=== PATIENT | female | born 1990 | race Caucasian/White ===

== ENCOUNTER 2017-10-12 14:55 | Emergency (ER) | payer BC ==
--- NOTE | 2017-10-12 15:10 | Emergency Department Record ---
History of Present Illness - General Chief complaint: Flank Pain Stated complaint: FLANK PAIN Time Seen by Provider: 10/12/17 15:09 Source: Patient Mode of Arrival: Ambulatory Limitations: No limitations - History of Present Illness Initial comments: 27 yo female presents with pelvic pain and flank pain. The symptoms have been ongoing for several weeks but seem to be increasing. She is 7 weeks . No vaginal bleeding. She has had a pain across the low back throughout as well. No fevers. No vomiting. No diarrhea. She has an OB appointment in 2 weeks. She has had 3 miscarriages and one live . She has had kidney stones in the past. MD Complaint: Pelvic pain -: Week(s) Radiation: L flank, R flank Severity: Mild Quality: Aching, Cramping Consistency: Intermittent Improves with: None Worsens with: None Associated Symptoms: Denies other symptoms - Related Data Previous Rx's Medication Instructions Recorded Clindamycin HCl 300 mg PO BID #14 capsule 10/12/17 Allergies Allergy/AdvReac Type Severity Reaction Status Date / Time No Known Drug Allergies Allergy Verified 10/12/17 15:18 Review of Systems Constitutional: Denies: Chills, Fever, Malaise, Weakness Eyes: Denies: Eye discharge, Eye pain, Photophobia, Vision change ENT: Denies: Congestion, Throat pain Respiratory: Denies: Cough, Dyspnea, Hemoptysis, Stridor, Wheezes Cardiovascular: Denies: Chest pain, Syncope Endocrine: Denies: Fatigue, Polydipsia, Polyuria Gastrointestinal: Reports: As per HPI, Abdominal pain, Nausea. Denies: Diarrhea , Vomiting Genitourinary: Denies: Dysuria, Urgency Musculoskeletal: Reports: Back pain. Denies: Arthralgia, Joint swelling, Myalgia Skin: Denies: Bruising, Change in color, Rash Neurological: Denies: Headache, Numbness, Vertigo, Weakness Psychiatric: Denies: Anxiety Hematological/Lymphatic: Denies: Easy bleeding, Easy bruising, Swollen glands Past Medical History - SOCIAL HISTORY Smoking Status: Light tobacco smoker (<10/day) - RESPIRATORY Hx Respiratory Disorders: No - CARDIOVASCULAR Hx Cardio Disorders: No - NEURO Hx Neuro Disorders: No - GI Hx GI Disorders: No - Hx Genitourinary Disorders: Yes Hx Kidney Stones: Yes - ENDOCRINE Hx Endocrine Disorders: No - MUSCULOSKELETAL Hx Musculoskeletal Disorders: No - PSYCH Hx Psych Problems: No - HEMATOLOGY/ONCOLOGY Hx Hematology/Oncology Disorders: No Family Medical History Family Hx Comment (NOT TO BE USED IN PLACE OF ITEMS BELOW): denies Physical Exam - General General Appearance: Alert, Oriented x3, Cooperative, No acute distress Limitations: No limitations - Head Head exam: Normal inspection - Eye Eye exam: Normal appearance - ENT ENT exam: Normal exam Ear exam: Normal external inspection Nasal Exam: Normal inspection Mouth exam: Normal external inspection - Neck Neck exam: Normal inspection - Respiratory Respiratory exam: Normal lung sounds bilaterally. negative: Respiratory distress - Cardiovascular Cardiovascular Exam: Regular rate, Normal rhythm, Normal heart sounds - GI/Abdominal GI/Abdominal exam: Soft, Tenderness (mild suprapubic, soft, no rebound or guarding) - Rectal Rectal exam: Deferred - Extremities Extremities exam: Normal inspection, Full ROM, Normal capillary refill. negative: Tenderness - Back Back exam: Reports: Normal inspection, CVA tenderness (R) (mild), CVA tenderness (L) (mild) - Neurological Neurological exam: Alert, Oriented X3 - Psychiatric Psychiatric exam: Normal affect, Normal mood. negative: Agitated, Anxious - Skin Skin exam: Dry, Intact, Normal color, Warm Course - Reevaluation(s) Reevaluation #1: 10/12/17 16:51 The CBC was reviewed No acute changes The CMP was negative for acute changes The UA was negative for infection or bacteria. Few RBC's. Epithelial cells noted as well. Likely some contamination. The Wet prep was positive for Clue Cells. She is symptomatic with pelvic pain and discharge. She will be treated. 10/12/17 16:53 10/12/17 18:04 The Renal US was normal The OB US was positive for SVIUP with normal HR. 3cm Corpus Luteal cyst noted. No acute abnormality. 10/12/17 18:05 Rh+ Medical Decision Making - Lab Data Result diagrams: 10/12/17 15:45 10/12/17 15:45 Disposition Disposition: Discharge Clinical Impression: , Bacterial vaginosis, Pelvic pain Disposition: Home, Self-Care Condition: (1) Good Instructions: (ED), Bacterial Vaginosis (ED) Additional Instructions: Call your OB tomorrow be seen this week for close follow up Be seen immediately if worse, bleeding, fever or any new concerns Take the Clindamycin as directed for one week Prescriptions: Clindamycin HCl 300 mg PO BID #14 capsule Forms: Patient Portal Access Time of Disposition: 18:08 Quality - Quality Measures Quality Measures: N/A - Blood Pressure Screening Does Patient Have Any of the Following: No Blood Pressure Classification: Normal BP Reading Systolic Measurement: 118 Diastolic Measurement: 66 Screening for High Blood Pressure: < Normal BP, F/U Not Required > [G8710]
[2017-10-12 15:35] LABS: URINE APPEARANCE CLEAR; URINE BILIRUBIN NEGATIVE (NEGATIVE); URINE BLOOD NEGATIVE (NEGATIVE); URINE COLOR YELLOW; URINE GLUCOSE (UA) NEGATIVE (NEGATIVE); URINE KETONE NEGATIVE (NEGATIVE); URINE LEUKOCYTE ESTERASE TRACE (NEGATIVE); URINE NITRITE NEGATIVE (NEGATIVE); URINE PROTEIN NEGATIVE (NEGATIVE); URINE UROBILINOGEN 0.2 E.U./dL (0.20 - 1.00)
[2017-10-12] MEDS ORDERED: 0.9 % SODIUM CHLORIDE 1,000 ML BAG IV ONE (15:35)
[2017-10-12 15:41] LABS: HCG,QUALITATIVE URINE POSITIVE (NEGATIVE)
[2017-10-12 15:56] LABS: URINE AMORPHOUS SEDIMENT 2+; URINE BACTERIA NONE SEEN; URINE EPITHELIAL CELLS 16 - 20 (FEW); URINE MUCUS MODERATE; URINE RBC 16 - 25 (NONE SEEN)
[2017-10-12 15:56] LABS: BASO % 0.7 % (0-6); EOS % 0.7 % (0-6); GRAN % 66.1 % (47-80); HEMATOCRIT 38.5 % (35.0-47.0); HEMOGLOBIN 12.8 gm/dl (11.6-16.0); LYMPH % 23.2 % (16-45); MEAN CORPUSCULAR HEMOGLOBIN 31.9 pg (27-33); MEAN CORPUSCULAR HGB CONC 33.2 g/dl (32-36); MEAN PLATELET VOLUME 11.9 fl (7.4-10.4); MONO % 9.3 % (0-9); PLATELET COUNT 163 K/uL (130-400); RED BLOOD COUNT 4.01 M/uL (3.80-5.40); RED CELL DISTRIBUTION WIDTH 12.1 % (11.5-14.5); WHITE BLOOD COUNT W/O DIFF 7.5 K/uL (4.2-12.2)
[2017-10-12 16:10] LABS: BLOOD UREA NITROGEN 6 mg/dL (6-20); CREATININE 0.6 mg/dL (0.5-0.9); EST GLOMERULAR FILTRATION RATE > 60 mL/min
[2017-10-12 16:13] LABS: GLUCOSE,RANDOM 85 mg/dL (74-109)
[2017-10-12] MEDS ORDERED: CLINDAMYCIN 150 MG CAP PO ONE (16:52)
--- NOTE | 2017-10-13 13:11 | ULTRASOUND REPORT ---
EXAM: EMERGENCY RENAL/RETROPERITONEAL ULTRASOUND HISTORY: , FLANK PAIN FOR A DAY. TECHNIQUE: Real-time ultrasound examination of the kidneys and urinary bladder was obtained. Comparison: No prior renal/retroperitoneal ultrasound. FINDINGS: The right kidney measures about 11.2 cm in length with no definite hydronephrosis seen. The left kidney measures about 12.7 cm in length with no hydronephrosis seen on the left as well. There is abnormal renal parenchymal echogenicity compared to the adjacent hepatic parenchymal echogenicity. The urinary bladder is identified with a prevoid bladder volume of 351 ml. No focal bladder abnormality identified. There is a small post void residual of only about 9 ml. Small intrauterine fluid collection evident. Please see the first trimester OB ultrasound from today as well. IMPRESSION: 1. THE KIDNEYS APPEAR NEGATIVE WITH NO HYDRONEPHROSIS EVIDENT. 2. THE BLADDER ALSO APPEARS ESSENTIALLY NEGATIVE WITH A RELATIVELY SMALL POST VOID RESIDUAL. JOB NUMBER: [id number] MTDD
--- NOTE | 2017-10-13 13:28 | ULTRASOUND REPORT ---
EXAM: EMERGENCY FIRST TRIMESTER OB ULTRASOUND WITH TRANSVAGINAL AND DOPPLER HISTORY: FIRST TRIMESTER , LEFT LOWER QUADRANT PAIN FOR A DAY NOW EXTENDING TO THE RIGHT LOWER QUADRANT AND BILATERAL FLANK AREA PAIN, NAUSEA AND VOMITING. TECHNIQUE: Real-time ultrasound examination of the pelvis was performed utilizing transabdominal and transvaginal technique. Comparison: No prior pelvic ultrasound with which to compare. FINDINGS: TRANSABDOMINAL OB ULTRASOUND: The uterus is identified measuring about 5.8 cm in AP x 7 cm in transverse diameters x 11.8 cm in length. Within the uterine fundus is seen an intrauterine gestational sac containing a tiny yolk sac and tiny pole. The gestational sac has a mean sac diameter of 2.28 cm corresponding to an estimated gestational age of 6 weeks 6 days. The tiny pole has a CRL measurement averaging about 0.94 corresponding to an estimated gestational age of 7 weeks 0 days. The heartbeat was detected and measured at 141 b.p.m. consistent with a viable intrauterine . The maternal right ovary was seen measuring 5.7 cm in size and containing a sonolucent mass about 3.6 cm in size, nonspecific although presumably a corpus luteum cyst. The left maternal ovary is not clearly seen, but no maternal left adnexal mass evident and no free fluid seen. The amniotic fluid and placenta cannot be adequately evaluated at this early gestational age, nor can the anatomy. TRANSVAGINAL OB ULTRASOUND: In an effort to better visualize the early intrauterine , transvaginal study was also performed. A very small amount of free fluid in the cul-de-sac may simply be physiologic. A single intrauterine gestational sac containing a pole and yolk sac again evident. The maternal right ovary is again seen measuring up to 7 cm in size and dominated by the approximately 3.4 cm cyst, again nonspecific although presumably a corpus luteum cyst. Arterial and venous flow evident in the right ovary with color flow and spectral analysis Doppler. The left ovary is identified transvaginally measuring about 2.8 cm in length and also demonstrating arterial and venous flow with color flow and spectral analysis Doppler. No left adnexal mass evident. Mean sac diameter measured at 2.33 cm corresponding to an estimated gestational age of 7 weeks 0 days. CRL measurement of about 1.01 cm identified corresponding an estimated gestational age of 7 weeks 1 day. heartbeat detected at 149 b.p.m. IMPRESSION: 1. SINGLE VIABLE INTRAUTERINE WITH AN ESTIMATED GESTATIONAL AGE OF ABOUT 7 WEEKS. THIS GIVES AN ESTIMATED DATE OF DELIVERY OF 05/31/18. THIS CORRESPONDS WELL WITH THE ANTICIPATED GESTATIONAL AGE OF 7 WEEKS 1 DAY BASED ON MENSTRUAL DATES. 2. HEARTBEAT DETECTED AT 149 B.P.M. CONSISTENT WITH A VIABLE INTRAUTERINE . 3. APPROXIMATELY 3.4 CM CYST RIGHT OVARY PRESUMABLY A CORPUS LUTEUM CYST. 4. TINY CERVICAL NABOTHIAN CYST. 5. TINY AMOUNT OF FREE FLUID MAY SIMPLY BE PHYSIOLOGIC. JOB NUMBER: [id number] [facility]
[2017-10-13 15:26] LABS: GC SPECIMEN TYPE Vaginal
== END 2017-10-12 18:21 | disposition home or self-care (01) ==
LOC: ER 14:55
DX: O23.91 Unspecified genitourinary tract infection in pregnancy, first trimester (principal); N76.0 Acute vaginitis; R10.31 Right lower quadrant pain; R11.2 Nausea with vomiting, unspecified; O99.331 Smoking (tobacco) complicating pregnancy, first trimester; F17.210 Nicotine dependence, cigarettes, uncomplicated; Z3A.01 Less than 8 weeks gestation of pregnancy
CPT/HCPCS: 99284 ×2; 85025; 80048; 81001; 81025; 86901; 76775; 76817; 76801; Q0111; 87210; J7030

== ENCOUNTER 2017-10-23 16:05 | Emergency (ER) | payer BC ==
[2017-10-23 16:50] LABS: URINE APPEARANCE SL CLOUDY; URINE BILIRUBIN NEGATIVE (NEGATIVE); URINE BLOOD TRACE-I (NEGATIVE); URINE COLOR YELLOW; URINE GLUCOSE (UA) NEGATIVE (NEGATIVE); URINE KETONE NEGATIVE (NEGATIVE); URINE LEUKOCYTE ESTERASE NEGATIVE (NEGATIVE); URINE NITRITE NEGATIVE (NEGATIVE); URINE PROTEIN NEGATIVE (NEGATIVE); URINE UROBILINOGEN 0.2 E.U./dL (0.20 - 1.00)
[2017-10-23 17:04] LABS: URINE BACTERIA NONE SEEN; URINE EPITHELIAL CELLS 0 - 2 (FEW); URINE RBC 0 - 2 (NONE SEEN); URINE WBC NONE SEEN (0-2/hpf)
[2017-10-23 18:09] LABS: BASO % 0.5 % (0-6); EOS % 0.7 % (0-6); GRAN % 68.3 % (47-80); HEMATOCRIT 36.6 % (35.0-47.0); HEMOGLOBIN 12.4 gm/dl (11.6-16.0); LYMPH % 22.3 % (16-45); MEAN CELL VOLUME 95.8 fl (81-97); MEAN CORPUSCULAR HEMOGLOBIN 32.5 pg (27-33); MEAN CORPUSCULAR HGB CONC 33.9 g/dl (32-36); MEAN PLATELET VOLUME 12.3 fl (7.4-10.4); MONO % 8.2 % (0-9); PLATELET COUNT 163 K/uL (130-400); RED BLOOD COUNT 3.82 M/uL (3.80-5.40); RED CELL DISTRIBUTION WIDTH 12.1 % (11.5-14.5); WHITE BLOOD COUNT W/O DIFF 8.9 K/uL (4.2-12.2)
--- NOTE | 2017-10-23 18:55 | Emergency Department Record ---
History of Present Illness - General Chief complaint: complication Stated complaint: AND BLOOD IN URINE Time Seen by Provider: 10/23/17 17:04 Source: Patient Mode of Arrival: Ambulatory Limitations: No limitations - History of Present Illness Initial comments: ptis approx 8wks ant is having cramping. she had blood in the toilet today. no clots or tissue. she saw her ob earlier this week MD Complaint: Abdominal pain Onset/Timin -: Days(s) Location: Abdomen Radiation: Suprapubic Severity: Moderate Severity scale (1-10): 5 Quality: Aching, Cramping Consistency: Constant Improves with: None Associated symptoms: Denies other symptoms, Nausea/vomiting Vaginal bleeding: None Number of weeks : 8 08/22/17 Pre-naima care: Followed by OB - Related Data : 5 Para: 1 Ab: 3 Home Medications Medication Instructions Recorded Confirmed Last Taken No Home Med [NO HOME MEDS] 10/23/17 10/23/17 Unknown Allergies Allergy/AdvReac Type Severity Reaction Status Date / Time No Known Drug Allergies Allergy Verified 10/23/17 16:45 Review of Systems Reviewed: No additional complaints except as noted below Constitutional: Reports: As per HPI. Denies: Chills, Fever, Malaise, Night sweats, Weakness, Weight change Eyes: Reports: As per HPI. Denies: Eye discharge, Eye pain, Photophobia, Vision change ENT: Reports: As per HPI. Denies: Congestion, Dental pain, Ear pain, Epistaxis , Hearing loss, Throat pain Respiratory: Reports: As per HPI. Denies: Cough, Dyspnea, Hemoptysis, Stridor, Wheezes Cardiovascular: Reports: As per HPI. Denies: Arrhythmia, Chest pain, Dyspnea on exertion, Edema, Murmurs, Orthopnea, Palpitations, Paroxysmal nocturnal dyspnea, Rheumatic Fever, Syncope Endocrine: Reports: As per HPI. Denies: Fatigue, Heat or cold intolerance, Polydipsia, Polyuria Gastrointestinal: Reports: As per HPI, Nausea, Vomiting. Denies: Abdominal pain , Constipation, Diarrhea, Hematemesis, Hematochezia, Melena Genitourinary: Reports: As per HPI. Denies: Abnormal menses, Discharge, Dyspareunia, Dysuria, Frequency, Hematuria, Incontinence, Retention, Urgency Musculoskeletal: Reports: As per HPI. Denies: Arthralgia, Back pain, Gout, Joint swelling, Myalgia, Neck pain Skin: Reports: As per HPI. Denies: Bruising, Change in color, Change in hair/ nails, Lesions, Pruritus, Rash Neurological: Reports: As per HPI. Denies: Abnormal gait, Confusion, Headache, Numbness, Paresthesias, Seizure, Tingling, Tremors, Vertigo, Weakness Psychiatric: Reports: As per HPI. Denies: Anxiety, Auditory hallucinations, Depression, Homicidal thoughts, Suicidal thoughts, Visual hallucinations Hematological/Lymphatic: Reports: As per HPI. Denies: Anemia, Blood Clots, Easy bleeding, Easy bruising, Swollen glands Past Medical History - SOCIAL HISTORY Smoking Status: Light tobacco smoker (<10/day) Alcohol Use: None Drug Use: None - ADMISSION NURSE History : 5 Para: 1 A: 3 - RESPIRATORY Hx Respiratory Disorders: No - CARDIOVASCULAR Hx Cardio Disorders: No - NEURO Hx Neuro Disorders: No - GI Hx GI Disorders: No - Hx Genitourinary Disorders: Yes Hx Kidney Stones: Yes - ENDOCRINE Hx Endocrine Disorders: No - MUSCULOSKELETAL Hx Musculoskeletal Disorders: No - PSYCH Hx Psych Problems: No - HEMATOLOGY/ONCOLOGY Hx Hematology/Oncology Disorders: No Family Medical History Any Significant Family History?: Yes Family Hx Comment (NOT TO BE USED IN PLACE OF ITEMS BELOW): denies Physical Exam - General General Appearance: Alert, Oriented x3, Cooperative, Mild distress - Head Head exam: Normal inspection - Eye Eye exam: Normal appearance, PERRL, EOMI Pupils: Normal accommodation - ENT ENT exam: Normal exam, Mucous membranes moist, Normal external ear exam, Normal orophraynx Ear exam: Normal external inspection. negative: External canal tenderness Nasal Exam: Normal inspection. negative: Discharge, Sinus tenderness Mouth exam: Normal external inspection, Tongue normal Teeth exam: Normal inspection. negative: Dental caries Throat exam: Normal inspection. negative: Tonsillar erythema, Tonsillar exudate - Neck Neck exam: Normal inspection, Full ROM. negative: Tenderness - Respiratory Respiratory exam: Normal lung sounds bilaterally. negative: Respiratory distress - Cardiovascular Cardiovascular Exam: Regular rate, Normal rhythm, Normal heart sounds - GI/Abdominal GI/Abdominal exam: Soft, Normal bowel sounds. negative: Tenderness - Rectal Rectal exam: Deferred - exam: Enlarged uterus, Other (cervix is closed. no bleeding at this time though there is scant dark blood) - Extremities Extremities exam: Normal inspection, Full ROM, Normal capillary refill. negative: Tenderness - Back Back exam: Reports: Normal inspection, Full ROM. Denies: Muscle spasm, Rash noted, Tenderness - Neurological Neurological exam: Alert, Normal gait, Oriented X3, Reflexes normal - Psychiatric Psychiatric exam: Normal affect, Normal mood - Skin Skin exam: Dry, Intact, Normal color, Warm Course Vital Signs 10/23/17 10/23/17 16:38 18:37 Temperature 99.0 F Pulse Rate 75 Pulse Rate [ 65 Pulse Ox Probe] Respiratory 18 16 Rate Blood Pressure 101/77 Blood Pressure 97/56 [Left Arm] Pulse Ox 100 99 - Reevaluation(s) Reevaluation #1: 10/23/17 19:35 d/w dr bernabe. us shows iup hr 146 and implantation bleed Reevaluation #2: 10/23/17 19:42 pt is rh pos per lab Medical Decision Making - Lab Data Result diagrams: 10/23/17 18:00 Lab Results 10/23/17 10/23/17 10/23/17 Range/Units 16:49 16:49 18:00 WBC (4.2-12.2) K/uL RBC (3.80-5.40) M/uL Hgb (11.6-16.0) gm/dl Hct (35.0-47.0) % MCV (81-97) fl MCH (27-33) pg MCHC (32-36) g/dl RDW (11.5-14.5) % Plt Count (130-400) K/uL MPV (7.4-10.4) fl Gran % (47-80) % Lymphocytes % (16-45) % Monocytes % (0-9) % Eosinophils % (0-6) % Basophils % (0-6) % Total Beta HCG 29671 mIU/mL Urine Color Yellow Urine Appearance Sl cloudy Urine pH 6.5 (5.0-8.0) Ur Specific [place] 1.025 (1.002-1.030) Urine Protein Negative (NEGATIVE) Urine Glucose (UA) Negative (NEGATIVE) Urine Ketones Negative (NEGATIVE) Urine Blood Trace-i (NEGATIVE) Urine Nitrite Negative (NEGATIVE) Urine Bilirubin Negative (NEGATIVE) Urine Urobilinogen 0.2 (0.20 - 1.00) E.U./dL Ur Leukocyte Esterase Negative (NEGATIVE) Urine RBC 0 - 2 (NONE SEEN) Urine WBC None seen (0-2/hpf) Ur Epithelial Cells 0 - 2 (FEW) Urine Bacteria None seen Urine HCG, Qual Positive H (NEGATIVE) 10/23/17 Range/Units 18:00 WBC 8.9 (4.2-12.2) K/uL RBC 3.82 (3.80-5.40) M/uL Hgb 12.4 (11.6-16.0) gm/dl Hct 36.6 (35.0-47.0) % MCV 95.8 (81-97) fl MCH 32.5 (27-33) pg MCHC 33.9 (32-36) g/dl RDW 12.1 (11.5-14.5) % Plt Count 163 (130-400) K/uL MPV 12.3 H (7.4-10.4) fl Gran % 68.3 (47-80) % Lymphocytes % 22.3 (16-45) % Monocytes % 8.2 (0-9) % Eosinophils % 0.7 (0-6) % Basophils % 0.5 (0-6) % Total Beta HCG mIU/mL Urine Color Urine Appearance Urine pH (5.0-8.0) Ur Specific [place] (1.002-1.030) Urine Protein (NEGATIVE) Urine Glucose (UA) (NEGATIVE) Urine Ketones (NEGATIVE) Urine Blood (NEGATIVE) Urine Nitrite (NEGATIVE) Urine Bilirubin (NEGATIVE) Urine Urobilinogen (0.20 - 1.00) E.U./dL Ur Leukocyte Esterase (NEGATIVE) Urine RBC (NONE SEEN) Urine WBC (0-2/hpf) Ur Epithelial Cells (FEW) Urine Bacteria Urine HCG, Qual (NEGATIVE) Disposition Disposition: Discharge Clinical Impression: Threatened Disposition: Home, Self-Care Condition: (1) Good Instructions: Threatened Miscarriage (ED) Additional Instructions: follow up with ob. no sex for 2 wks or cleared by ob. push fluids Forms: Patient Portal Access Quality - Quality Measures Quality Measures: (14-50yr) - : US Determination Quality Measure: Measure #254: US Determination of Location US Determination of Location: < Trans-Abdominal or Trans-Vaginal US Performed > [G8806] - : Rhogam Quality Measure: Measure #255: Rhogam for Rh-Negative Women ICD10 Codes Entered: Yes Rhogam for Rh-Negative Women at Risk: Rh-immunoglobulin NOT Ordered w/ Reason [G6410] Reason for not prescribing Rhogam: Other - Blood Pressure Screening Does Patient Have Any of the Following: No Blood Pressure Classification: Normal BP Reading Systolic Measurement: 101 Diastolic Measurement: 77 Screening for High Blood Pressure: < Normal BP, F/U Not Required > [G8783]
--- NOTE | 2017-10-25 00:10 | ULTRASOUND REPORT ---
EXAM: ULTRASOUND OB PELV W TV - EARLY (4-13wks) HISTORY: PELVIC PAIN. TECHNIQUE: Transvaginal and transabdominal sonographic evaluation of the pelvis was performed using marroquin-scale imaging with the additional of color flow Doppler and spectral analysis. FINDINGS: The uterus is normal in position. The uterus measures 10.0 x 7.2 x 7.7 cm. There is a single live intrauterine with a sonographic age of 8 weeks, 4 days. heart sounds 165 beats per minute. The amniotic fluid volume appears subjectively normal. The placenta is still forming. There is an implantation bleed measuring 2.5 x 1.3 x 3.7 cm. The ovaries are normal in size. There is normal arterial and venous flow. IMPRESSION: 1. SINGLE LIVE INTRAUTERINE WITH A SONOGRAPHIC AGE OF 8 WEEKS, 4 DAYS. HEART SOUNDS 165 BEATS PER MINUTE. 2. SUBCHORIONIC HEMORRHAGE MEASURING 2.5 X 1.3 X 3.7 CM. JOB NUMBER: [id number] MTDD
== END 2017-10-23 19:50 | disposition home or self-care (01) ==
LOC: ER 16:05
DX: O20.0 Threatened abortion (principal); O99.331 Smoking (tobacco) complicating pregnancy, first trimester; Z3A.08 8 weeks gestation of pregnancy
CPT/HCPCS: 76801; 76817; 81001; 81025; 84702; 85025; 99283; 99284

== ENCOUNTER 2017-11-12 14:04 | Emergency (ER) | payer BC ==
[2017-11-12] MEDS ORDERED: ONDANSETRON HCL IV 4 MG/2 ML VIAL IV ONE (14:45)
[2017-11-12] MEDS ORDERED: 0.9 % SODIUM CHLORIDE 1,000 ML BAG IV ONE (14:45)
--- NOTE | 2017-11-12 14:48 | Emergency Department Record ---
History of Present Illness - General Chief complaint: complication Stated complaint: 11 WEEKS PREG AND VOMITING/CRAMPS Time Seen by Provider: 11/12/17 14:42 Source: Patient Mode of Arrival: Ambulatory Limitations: No limitations - History of Present Illness Initial comments: The patient is here due to a 2 day hx of frequent nausea, vomiting, and mild pelvic cramping. She denies any back pain, fever, chills, or any vaginal bleeding. The patient is 11 weeks by US 3 weeks ago and does have Zofran at home but it is not working. MD Complaint: Other Onset/Timin -: Days(s) Location: Pelvis - Related Data Home Medications Medication Instructions Recorded Confirmed Last Taken No122/Iron/Folic Acid 1 tab PO DAILY 11/12/17 11/12/17 11/12/17 [ Multi Tablet] Previous Rx's Medication Instructions Recorded Nitrofurantoin [place] [Macrobid] 100 mg PO BID #10 capsule 11/12/17 Allergies Allergy/AdvReac Type Severity Reaction Status Date / Time No Known Drug Allergies Allergy Verified 11/12/17 14:48 Review of Systems Constitutional: Denies: Chills, Fever Eyes: Denies: Eye discharge ENT: Denies: Congestion Respiratory: Denies: Cough, Dyspnea Past Medical History - SOCIAL HISTORY Smoking Status: Light tobacco smoker (<10/day) Drug Use: None - RESPIRATORY Hx Respiratory Disorders: No - CARDIOVASCULAR Hx Cardio Disorders: No - NEURO Hx Neuro Disorders: No - GI Hx GI Disorders: No - Hx Genitourinary Disorders: Yes Hx Kidney Stones: Yes - ENDOCRINE Hx Endocrine Disorders: No - MUSCULOSKELETAL Hx Musculoskeletal Disorders: No - PSYCH Hx Psych Problems: No - HEMATOLOGY/ONCOLOGY Hx Hematology/Oncology Disorders: No Family Medical History Family Hx Comment (NOT TO BE USED IN PLACE OF ITEMS BELOW): denies Physical Exam - General General Appearance: Alert, Oriented x3, Cooperative, No acute distress - Head Head exam: Atraumatic, Normocephalic, Normal inspection - Eye Eye exam: Normal appearance, PERRL, EOMI - ENT Throat exam: Normal inspection. negative: Tonsillar erythema, Tonsillar exudate - Neck Neck exam: Normal inspection, Full ROM. negative: Tenderness - Respiratory Respiratory exam: Normal lung sounds bilaterally. negative: Respiratory distress - Cardiovascular Cardiovascular Exam: Regular rate, Normal rhythm, Normal heart sounds - GI/Abdominal GI/Abdominal exam: Soft, Normal bowel sounds. negative: Rebound, Rigid, Tenderness - Extremities Extremities exam: Normal inspection, Full ROM, Normal capillary refill. negative: Tenderness Medical Decision Making - Lab Data Result diagrams: 11/12/17 14:45 11/12/17 14:55 Disposition Disposition: Discharge Clinical Impression: Hyperemesis gravidarum Disposition: Home, Self-Care Condition: (2) Stable Instructions: Hyperemesis Gravidarum (ED) Additional Instructions: Please take your home Zofran for nausea and drink plenty of fluids. Please take the Macrobid as directed and see your [facility] doctors if not better. Return to the ER for any worsening symptoms. Prescriptions: Nitrofurantoin [place] [Macrobid] 100 mg PO BID #10 capsule Forms: Patient Portal Access Time of Disposition: 16:20 Quality - Quality Measures Quality Measures: (14-50yr) - : US Determination Quality Measure: Measure #254: US Determination of Location View Details: Yes US Determination of Location: Trans-Abdominal or Trans-Vaginal US NOT Performed w/Reasons [G8807] Reason for No US: Documented Intrauterine - : Rhogam Quality Measure: Measure #255: Rhogam for Rh-Negative Women ICD10 Codes Entered: Yes View Details: Yes Rhogam for Rh-Negative Women at Risk: Rh-immunoglobulin NOT Ordered w/ Reason [G8810] Reason for not prescribing Rhogam: Other - Blood Pressure Screening View Details: Yes Does Patient Have Any of the Following: No Blood Pressure Classification: Normal BP Reading Systolic Measurement: 103 Diastolic Measurement: 65 Screening for High Blood Pressure: < Normal BP, F/U Not Required > [G8783]
[2017-11-12 15:03] LABS: BASO % 0.5 % (0-6); EOS % 0.6 % (0-6); GRAN % 72.3 % (47-80); HEMATOCRIT 38.1 % (35.0-47.0); HEMOGLOBIN 13.3 gm/dl (11.6-16.0); LYMPH % 20.1 % (16-45); MEAN CELL VOLUME 94.3 fl (81-97); MEAN CORPUSCULAR HEMOGLOBIN 32.9 pg (27-33); MEAN CORPUSCULAR HGB CONC 34.9 g/dl (32-36); MONO % 6.5 % (0-9); PLATELET COUNT 170 K/uL (130-400); RED BLOOD COUNT 4.04 M/uL (3.80-5.40); RED CELL DISTRIBUTION WIDTH 12.1 % (11.5-14.5)
[2017-11-12 15:18] LABS: BLOOD UREA NITROGEN 7 mg/dL (6-20); CREATININE 0.4 mg/dL (0.5-0.9); EST GLOMERULAR FILTRATION RATE > 60 mL/min
[2017-11-12 15:19] LABS: TOTAL PROTEIN 6.4 g/dL (6.6-8.7)
[2017-11-12 15:21] LABS: GLUCOSE,RANDOM 108 mg/dL (74-109)
[2017-11-12 15:24] LABS: ALB/GLOB RATIO 1.5 (1.1-1.8); ALBUMIN 3.8 g/dL (4.0-5.0); ALKALINE PHOSPHATASE 42 U/L (35-104); ALT/SGPT 6 U/L (<33); AST/SGOT 9 U/L (10.0-35.0)
[2017-11-12 15:51] LABS: URINE APPEARANCE SL CLOUDY; URINE BILIRUBIN NEGATIVE (NEGATIVE); URINE BLOOD TRACE-I (NEGATIVE); URINE COLOR YELLOW; URINE GLUCOSE (UA) NEGATIVE (NEGATIVE); URINE KETONE NEGATIVE (NEGATIVE); URINE LEUKOCYTE ESTERASE TRACE (NEGATIVE); URINE NITRITE NEGATIVE (NEGATIVE); URINE PROTEIN NEGATIVE (NEGATIVE); URINE UROBILINOGEN 0.2 E.U./dL (0.20 - 1.00)
[2017-11-12 16:14] LABS: URINE BACTERIA 1+
== END 2017-11-12 16:27 | disposition home or self-care (01) ==
LOC: ER 14:04
DX: O21.0 Mild hyperemesis gravidarum (principal); O99.331 Smoking (tobacco) complicating pregnancy, first trimester; Z3A.11 11 weeks gestation of pregnancy; F17.210 Nicotine dependence, cigarettes, uncomplicated
CPT/HCPCS: 99284 ×2; 96374; 85025; 80053; 81001; J2405; J7030

== ENCOUNTER 2017-12-24 16:56 | Emergency (ER) | payer BC ==
--- NOTE | 2017-12-24 17:12 | Emergency Department Record ---
History of Present Illness - General Chief complaint: ENT Stated complaint: DENTAL PAIN Time Seen by Provider: 12/24/17 17:03 Source: Patient Mode of Arrival: Ambulatory Limitations: No limitations - History of Present Illness Initial comments: The patient has a hx of bad teeth and has had pain to her R lower molar for one day. She denies any swelling, difficulty swallowing, or rash. She does have a dental appointment for tomorrow. MD complaint: Tooth pain Onset/Timin -: Days(s) Severity: Moderate Severity scale (1-10): 6 Quality: Aching Consistency: Constant Improves with: None Worsens with: None Context- Dental: History of dental caries Associated Symptoms: Toothache - Related Data Previous Rx's Medication Instructions Recorded Amoxicillin 500 mg PO TID #21 capsule 12/24/17 Allergies Allergy/AdvReac Type Severity Reaction Status Date / Time No Known Drug Allergies Allergy Verified 12/24/17 17:00 Travel Screening - Travel/Exposure Within Last 30 Days Have you traveled within the last 30 days?: No - Travel/Exposure Within Last Year Have you traveled outside the [place] in the last year?: No - Additonal Travel Details Have you been exposed to anyone with a communicable illness?: No - Travel Symptoms Symptom Screening: None Review of Systems Constitutional: Denies: Chills, Fever Past Medical History - SOCIAL HISTORY Smoking Status: Former smoker Alcohol Use: None Drug Use: None - RESPIRATORY Hx Respiratory Disorders: No - CARDIOVASCULAR Hx Cardio Disorders: No - NEURO Hx Neuro Disorders: No - GI Hx GI Disorders: No - Hx Genitourinary Disorders: Yes Hx Kidney Stones: Yes - ENDOCRINE Hx Endocrine Disorders: No - MUSCULOSKELETAL Hx Musculoskeletal Disorders: No - PSYCH Hx Psych Problems: No - HEMATOLOGY/ONCOLOGY Hx Hematology/Oncology Disorders: No Family Medical History Any Significant Family History?: No Family Hx Comment (NOT TO BE USED IN PLACE OF ITEMS BELOW): denies Physical Exam - General General Appearance: Alert, Oriented x3, Cooperative, No acute distress - Head Head exam: Atraumatic, Normocephalic, Normal inspection - Eye Eye exam: Normal appearance, PERRL, EOMI. negative: Conjunctival injection - ENT ENT exam: Normal exam (There is no mandible swelling or erythema.) Mouth exam: Normal external inspection, Tongue normal. negative: Muffled voice , Tongue elevation Teeth exam: Dental caries, Dental tenderness # (31. There is no gum line swelling or any signs of an abscess. The tooth appears chronically fx's. There is diffuse evidence of poor dentition.). negative: Normal inspection, Gingival enlargement Throat exam: Normal inspection. negative: Tonsillar erythema, Tonsillar exudate - Neck Neck exam: Normal inspection, Full ROM. negative: Tenderness Course Vital Signs 12/24/17 17:03 Temperature 98.5 F Pulse Rate 95 H Respiratory 16 Rate Blood Pressure 105/56 Pulse Ox 99 - Reevaluation(s) Reevaluation #1: I did explain the need to continue the Tylenol for pain and take the AMox along with seeing her dentist tomorrow. 12/24/17 17:14 Disposition Disposition: Discharge Clinical Impression: Pain, dental Disposition: Home, Self-Care Condition: (2) Stable Instructions: Toothache (ED) Additional Instructions: Please take Tylenol for pain and start the Amoxicillin. Please see your Dentist as planned tomorrow. Prescriptions: Amoxicillin 500 mg PO TID #21 capsule Forms: Patient Portal Access Time of Disposition: 17:12 Quality - Quality Measures Quality Measures: N/A - Blood Pressure Screening View Details: Yes Does Patient Have Any of the Following: No Blood Pressure Classification: Normal BP Reading Systolic Measurement: 105 Diastolic Measurement: 56 Screening for High Blood Pressure: < Normal BP, F/U Not Required > [G8783]
== END 2017-12-24 17:19 | disposition home or self-care (01) ==
LOC: ER 16:56
DX: K02.9 Dental caries, unspecified (principal); Z87.891 Personal history of nicotine dependence
CPT/HCPCS: 99282

== ENCOUNTER 2018-01-26 18:59 | Emergency (ER) | payer BC ==
--- NOTE | 2018-01-26 19:16 | Emergency Department Record ---
History of Present Illness - General Chief Complaint: Abdominal Pain Stated Complaint: ABDOMINAL PAIN Time Seen by Provider: 01/26/18 19:10 Source: Patient Mode of Arrival: Ambulatory Limitations: No limitations - History of Present Illness Initial Comments: 27 yo female at 22 weeks gestation of her second presents with abdominal cramps and a watery leakage of a fluid with cough. She is feeling the baby move. The pain is very mild. No fevers, chills, nausea, vomiting or diarrhea. No recent illness. Her OB is through [facility] in a practice off [facility]. She did not see any blood. MD Complaint: Abdominal pain -: Hour(s) (5) Location: Suprapubic Radiation: Suprapubic Migration to: Suprapubic Severity: Mild Quality: Cramping Consistency: Intermittent Improves With: Nothing Worsens With: Nothing Context: Other () Associated Symptoms: Denies other symptoms - Related Data Allergies Allergy/AdvReac Type Severity Reaction Status Date / Time No Known Drug Allergies Allergy Verified 12/24/17 17:00 Review of Systems Constitutional: Denies: Chills, Fever, Weakness Eyes: Denies: Eye discharge ENT: Denies: Congestion, Throat pain Respiratory: Denies: Cough, Dyspnea Cardiovascular: Denies: Chest pain, Syncope Endocrine: Denies: Fatigue Gastrointestinal: Reports: As per HPI, Abdominal pain. Denies: Diarrhea, Nausea , Vomiting Genitourinary: Reports: Discharge Musculoskeletal: Denies: Arthralgia, Back pain, Myalgia Skin: Denies: Bruising, Change in color, Rash Neurological: Denies: Headache Psychiatric: Denies: Anxiety Hematological/Lymphatic: Denies: Blood Clots, Easy bleeding, Easy bruising, Swollen glands Past Medical History - SOCIAL HISTORY Smoking Status: Former smoker Drug Use: None - RESPIRATORY Hx Respiratory Disorders: No - CARDIOVASCULAR Hx Cardio Disorders: No - NEURO Hx Neuro Disorders: No - GI Hx GI Disorders: No - Hx Genitourinary Disorders: Yes Hx Kidney Stones: Yes - ENDOCRINE Hx Endocrine Disorders: No - MUSCULOSKELETAL Hx Musculoskeletal Disorders: No - PSYCH Hx Psych Problems: No - HEMATOLOGY/ONCOLOGY Hx Hematology/Oncology Disorders: No Family Medical History Family Hx Comment (NOT TO BE USED IN PLACE OF ITEMS BELOW): denies Physical Exam - General General Appearance: Alert, Oriented x3, Cooperative, No acute distress Limitations: No limitations - Head Head exam: Atraumatic, Normal inspection - Eye Eye exam: Normal appearance, Conjunctival injection - ENT ENT exam: Normal exam Ear exam: Normal external inspection Nasal Exam: Normal inspection Mouth exam: Normal external inspection Teeth exam: Normal inspection - Neck Neck exam: Normal inspection, Full ROM. negative: Tenderness - Respiratory Respiratory exam: Normal lung sounds bilaterally. negative: Respiratory distress - Cardiovascular Cardiovascular Exam: Regular rate, Normal rhythm, Normal heart sounds - GI/Abdominal GI/Abdominal exam: Soft, Tenderness (minimal suprapubic tenderness, very soft) - Rectal Rectal exam: Deferred - exam: Deferred - Extremities Extremities exam: Normal inspection, Full ROM, Normal capillary refill. negative: Tenderness - Back Back exam: Denies: CVA tenderness (R), CVA tenderness (L) - Neurological Neurological exam: Alert, Oriented X3 - Psychiatric Psychiatric exam: negative: Agitated, Anxious - Skin Skin exam: Dry, Intact, Normal color, Warm Course - Reevaluation(s) Reevaluation #1: [facility] OB Triage will be contacted The patient is 22 weeks Positive movement Mild symptoms. Stable no signs of active labor. 01/26/18 19:[address] Toscano of OB Triage. She accepts the patient The patient's symptoms are very mild I did offer ambulance. She declined. I explained some risk driving herself in spite of very mild symptoms. She understands and makes the decision to drive herself. She will not be the deliver driver. Her mother will deliver driver her. 01/26/18 19:23 01/26/18 19:24 FHT 154 01/26/18 19:25 Medical Decision Making - Lab Data Result diagrams: 01/26/18 19:15 01/26/18 19:15 Disposition Disposition: Transfer Disposition: Acute Care Hospital Transfer Transfer To: [facility] OB Triage Reason For Transfer: Pain fluid leakage Accepting Physician: Everton Time Discussed w/Accepting Physician: 19:25 Condition: (1) Good Additional Instructions: Go directly to [facility] OB triage for evaluation Forms: Patient Portal Access Time of Disposition: 19:17 Quality - Quality Measures Quality Measures: N/A - Blood Pressure Screening Does Patient Have Any of the Following: No Blood Pressure Classification: Normal BP Reading Systolic Measurement: 118 Diastolic Measurement: 78 Screening for High Blood Pressure: < Normal BP, F/U Not Required > [G8783]
[2018-01-26 19:30] LABS: BASO % 0.2 % (0-6); EOS % 0.6 % (0-6); GRAN % 76.9 % (47-80); HEMATOCRIT 36.1 % (35.0-47.0); HEMOGLOBIN 12.1 gm/dl (11.6-16.0); LYMPH % 15.9 % (16-45); MEAN CORPUSCULAR HGB CONC 33.5 g/dl (32-36); MEAN PLATELET VOLUME 12.2 fl (7.4-10.4); MONO % 6.4 % (0-9); PLATELET COUNT 178 K/uL (130-400); RED BLOOD COUNT 3.76 M/uL (3.80-5.40); RED CELL DISTRIBUTION WIDTH 12.5 % (11.5-14.5); WHITE BLOOD COUNT W/O DIFF 10.6 K/uL (4.2-12.2)
[2018-01-26 19:32] LABS: BLOOD UREA NITROGEN 7 mg/dL (6-20); CREATININE 0.4 mg/dL (0.5-0.9); EST GLOMERULAR FILTRATION RATE > 60 mL/min; MEAN CORPUSCULAR HEMOGLOBIN 32.1 pg (27-33)
[2018-01-26 19:34] LABS: GLUCOSE,RANDOM 127 mg/dL (74-109)
== END 2018-01-26 19:30 | disposition short-term general hospital (02) ==
LOC: ER 18:59
DX: O26.92 Pregnancy related conditions, unspecified, second trimester (principal); R10.2 Pelvic and perineal pain; R05 Cough; Z3A.22 22 weeks gestation of pregnancy; Z87.891 Personal history of nicotine dependence
CPT/HCPCS: 80048; 85025; 99285

== ENCOUNTER 2018-10-14 16:46 | Emergency (ER) | payer BC, MEDICAID ==
[2018-10-14] MEDS ORDERED: 0.9 % SODIUM CHLORIDE 1,000 ML BAG IV ONE ×2 (17:03→18:24)
--- NOTE | 2018-10-14 17:12 | Emergency Department Record ---
History of Present Illness - General Chief complaint: Female Urogenital Problem Stated complaint: CRAMPING IN ABD Time Seen by Provider: 10/14/18 17:03 Source: Patient Mode of Arrival: Ambulatory - History of Present Illness Initial comments: The patient states that last night her left flank and LLQ began hurting. Today is improved somewhat but now is worse again. She has a history of kidney stones in the past. Two week ago she injured herself at work, and got a urine test prior to treatment which, to her surprise, was positive. She is [id number], and is still nursing her most recent child born in May. She denies fevers, chills, hematuria, vaginal discharge, or concern for STD's as she is monogamous. In past she had a stone which needed lithotrypsy. Onset/Timin -: Days(s) Location: Suprapubic Radiation: L flank Severity: Mild, Moderate Severity scale (1-10): 4 Quality: Aching, Cramping Consistency: Constant Improves with: None Worsens with: None Patient : Yes (13 weeks) Associated Symptoms: Denies other symptoms - Related Data Sexually active: Yes : 6 Para: 2 Previous Rx's Medication Instructions Recorded Cephalexin [Keflex] 500 mg PO QID #40 cap 10/14/18 Allergies Allergy/AdvReac Type Severity Reaction Status Date / Time No Known Drug Allergies Allergy Verified 12/24/17 17:00 Travel Screening - Travel/Exposure Within Last 30 Days Have you traveled within the last 30 days?: No - Travel/Exposure Within Last Year Have you traveled outside the [place] in the last year?: No - Additonal Travel Details Have you been exposed to anyone with a communicable illness?: No - Travel Symptoms Symptom Screening: None Review of Systems Reviewed: No additional complaints except as noted below Constitutional: Reports: As per HPI. Denies: Chills, Fever, Malaise, Night sweats, Weakness, Weight change Eyes: Reports: As per HPI. Denies: Eye discharge, Eye pain, Photophobia, Vision change ENT: Reports: As per HPI. Denies: Congestion, Dental pain, Ear pain, Epistaxis , Hearing loss, Throat pain Respiratory: Reports: As per HPI. Denies: Cough, Dyspnea, Hemoptysis, Stridor, Wheezes Cardiovascular: Reports: As per HPI. Denies: Arrhythmia, Chest pain, Dyspnea on exertion, Edema, Murmurs, Orthopnea, Palpitations, Paroxysmal nocturnal dyspnea, Rheumatic Fever, Syncope Endocrine: Reports: As per HPI. Denies: Fatigue, Heat or cold intolerance, Polydipsia, Polyuria Gastrointestinal: Reports: As per HPI. Denies: Abdominal pain, Constipation, Diarrhea, Hematemesis, Hematochezia, Melena, Nausea, Vomiting Genitourinary: Reports: As per HPI. Denies: Abnormal menses, Discharge, Dyspareunia, Dysuria, Frequency, Hematuria, Incontinence, Retention, Urgency Musculoskeletal: Reports: As per HPI. Denies: Arthralgia, Back pain, Gout, Joint swelling, Myalgia, Neck pain Skin: Reports: As per HPI. Denies: Bruising, Change in color, Change in hair/ nails, Lesions, Pruritus, Rash Neurological: Reports: As per HPI. Denies: Abnormal gait, Confusion, Headache, Numbness, Paresthesias, Seizure, Tingling, Tremors, Vertigo, Weakness Psychiatric: Reports: As per HPI. Denies: Anxiety, Auditory hallucinations, Depression, Homicidal thoughts, Suicidal thoughts, Visual hallucinations Hematological/Lymphatic: Reports: As per HPI. Denies: Anemia, Blood Clots, Easy bleeding, Easy bruising, Swollen glands Past Medical History - SOCIAL HISTORY Smoking Status: Former smoker Alcohol Use: None Drug Use: None - [employer] History : 6 Para: 2 - RESPIRATORY Hx Respiratory Disorders: No - CARDIOVASCULAR Hx Cardio Disorders: No - NEURO Hx Neuro Disorders: No - GI Hx GI Disorders: No - Hx Genitourinary Disorders: Yes Hx Kidney Stones: Yes - ENDOCRINE Hx Endocrine Disorders: No - MUSCULOSKELETAL Hx Musculoskeletal Disorders: No - PSYCH Hx Psych Problems: No - HEMATOLOGY/ONCOLOGY Hx Hematology/Oncology Disorders: No Family Medical History Any Significant Family History?: No Family Hx Comment (NOT TO BE USED IN PLACE OF ITEMS BELOW): denies Physical Exam - General General Appearance: Alert, Oriented x3, Cooperative, No acute distress - Head Head exam: Normal inspection - Eye Eye exam: Normal appearance, PERRL, EOMI. negative: Conjunctival injection, Nystagmus Pupils: Normal accommodation - ENT ENT exam: Normal exam, Mucous membranes moist, Normal external ear exam, Normal orophraynx, TM's normal bilaterally Ear exam: Normal external inspection. negative: External canal tenderness Nasal Exam: Normal inspection. negative: Discharge, Sinus tenderness Mouth exam: Normal external inspection, Tongue normal Teeth exam: Normal inspection. negative: Dental caries Throat exam: Normal inspection. negative: Tonsillar erythema, Tonsillar exudate - Neck Neck exam: Normal inspection, Full ROM. negative: Lymphadenopathy, Meningismus , Tenderness - Respiratory Respiratory exam: Normal lung sounds bilaterally. negative: Accessory muscle use, Chest wall tenderness, Respiratory distress - Cardiovascular Cardiovascular Exam: Regular rate, Normal rhythm, Normal heart sounds - GI/Abdominal GI/Abdominal exam: Soft, Normal bowel sounds, Tenderness (LLQ into left flank tender on palpation.) - Rectal Rectal exam: Deferred - exam: Deferred - Extremities Extremities exam: Normal inspection, Full ROM, Normal capillary refill. negative: Tenderness - Back Back exam: Reports: Normal inspection, CVA tenderness (L), Full ROM. Denies: CVA tenderness (R), Muscle spasm, Rash noted, Tenderness - Neurological Neurological exam: Alert, CN II-XII intact, Normal gait, Oriented X3, Reflexes normal. negative: Motor sensory deficit - Psychiatric Psychiatric exam: Normal affect, Normal mood - Skin Skin exam: Dry, Intact, Normal color, Warm Course Vital Signs 10/14/18 16:56 Temperature 98.7 F Pulse Rate 81 Respiratory 20 Rate Blood Pressure 117/52 Pulse Ox 99 - Reevaluation(s) Reevaluation #1: 10/14/18 18:51 Patient is talking on her cell phone. She states her pain is 7-8/10. Will order IV tylenol. US of kidney and pelvis are both wnl revealing an 11 week IUP with FHT's 167, anterior placenta. atient informed of results, all questions answered. Plan is to DC patient home on oral antibiotics after after IV medications infused. Medical Decision Making - Management Options MDM Management: No Additional Work-up Planned - Data Complexity MDM Data: Labs Ordered and/or Reviewed, X-Ray Ordered and/or Reviewed (US kidney : NEG; US abd/pelvis: 11 wk IUP FHT's 167, anterior placenta.) - Lab Data Result diagrams: 10/14/18 17:10 10/14/18 17:10 Disposition Disposition: Discharge Clinical Impression: UTI (urinary tract infection) during Qualifiers: Trimester: first trimester Qualified Code(s): O23.41 - Unspecified infection of urinary tract in , first trimester Disposition: Home, Self-Care Return To Work/School Note Provided: Yes Condition: (1) Good Instructions: Urinary Tract Infection in (ED) Additional Instructions: Take antibiotics as directed until gone. Push fluids. Tylenol as directed as needed for pain. OB appointment: call you OB in a.m. for your first appointment. Recheck UA with PCP or OB to be sure it clears after your antibiotics. Off work today and tomorrow, 10/14 and 10/15/18. Return 10/16/18. Prescriptions: Cephalexin [Keflex] 500 mg PO QID #40 cap Forms: Patient Portal Access Quality - Quality Measures Quality Measures: N/A - Blood Pressure Screening Does Patient Have Any of the Following: No Blood Pressure Classification: Normal BP Reading Systolic Measurement: 117 Diastolic Measurement: 52 Screening for High Blood Pressure: < Normal BP, F/U Not Required > [G8783]
[2018-10-14 17:17] LABS: HCG,QUALITATIVE URINE POSITIVE (NEGATIVE); URINE APPEARANCE CLEAR; URINE BILIRUBIN NEGATIVE (NEGATIVE); URINE BLOOD NEGATIVE (NEGATIVE); URINE COLOR YELLOW; URINE GLUCOSE (UA) NEGATIVE (NEGATIVE); URINE KETONE NEGATIVE (NEGATIVE); URINE LEUKOCYTE ESTERASE MODERATE (NEGATIVE); URINE NITRITE POSITIVE (NEGATIVE); URINE PROTEIN TRACE (NEGATIVE); URINE UROBILINOGEN 0.2 E.U./dL (0.20 - 1.00)
[2018-10-14 17:18] LABS: BASO % 0.4 % (0-6); EOS % 0.2 % (0-6); GRAN % 72.1 % (47-80); HEMATOCRIT 39.6 % (35.0-47.0); HEMOGLOBIN 13.4 gm/dl (11.6-16.0); LYMPH % 20.1 % (16-45); MEAN CELL VOLUME 91.7 fl (81-97); MEAN CORPUSCULAR HGB CONC 33.8 g/dl (32-36); MEAN PLATELET VOLUME 12.2 fl (7.4-10.4); MONO % 7.2 % (0-9); PLATELET COUNT 186 K/uL (130-400); RED BLOOD COUNT 4.32 M/uL (3.80-5.40); RED CELL DISTRIBUTION WIDTH 13.5 % (11.5-14.5); WHITE BLOOD COUNT W/O DIFF 9.8 K/uL (4.2-12.2)
[2018-10-14 17:31] LABS: URINE RBC 0 - 2 (NONE SEEN); URINE SQUAMOUS EPITHELIAL CELL 21 - 35 /hpf; URINE WBC >50 (0-2/hpf)
[2018-10-14 17:32] LABS: URINE BACTERIA 4+
[2018-10-14 17:33] LABS: BLOOD UREA NITROGEN 8 mg/dL (6-20); CREATININE 0.5 mg/dL (0.5-0.9); EST GLOMERULAR FILTRATION RATE > 60 mL/min
[2018-10-14 17:34] LABS: TOTAL PROTEIN 7.8 g/dL (6.6-8.7)
[2018-10-14 17:36] LABS: GLUCOSE,RANDOM 108 mg/dL (74-109)
[2018-10-14 17:38] LABS: ALB/GLOB RATIO 1.5 (1.1-1.8); ALBUMIN 4.7 g/dL (4.0-5.0); ALT/SGPT 8 U/L (<33); AST/SGOT 11 U/L (10.0-35.0)
[2018-10-14 17:39] LABS: ALKALINE PHOSPHATASE 63 U/L (35-104)
[2018-10-14] MEDS ORDERED: CEFTRIAXONE 1GM/50ML BAG IVPB SCH (18:30)
[2018-10-14] MEDS ORDERED: ACETAMINOPHEN 1,000 MG/100 ML BTL IVPB ONE (18:37)
--- NOTE | 2018-10-17 10:21 | ULTRASOUND REPORT ---
DATE: 10/14/2018 at 1738. EXAM: RENAL/RETROPERITONEAL ULTRASOUND. HISTORY: LEFT FLANK PAIN. KIDNEY STONE HISTORY. TECHNIQUE: Routine ultrasound examination of the urinary bladder and kidneys is performed. COMPARISON: Renal/retroperitoneal ultrasound dated 10/12/2017. FINDINGS: Each kidney is well visualized and is smoothly marginated. The right kidney measures 11.9 x 3.7 x 5.8 cm, and the left kidney measures 12.4 x 5.6 x 7.1 cm. Renal echogenicity is within the limits of normal. No hydronephrosis. No cystic nor contour-deforming solid renal mass. No shadowing renal calculus. The pre-void urinary bladder is only partially distended with a volume of 26 mL. No definite focal urinary bladder wall abnormality. The patient did not feel the urge to void. IMPRESSION: 1. NORMAL SONOGRAPHIC APPEARANCE OF THE KIDNEYS. 2. EVALUATION OF THE URINARY BLADDER IS SOMEWHAT LIMITED BY INCOMPLETE DISTENSION. NO DEFINITE FOCAL BLADDER WALL ABNORMALITY. Job Number: [id number] MTDD
--- NOTE | 2018-10-17 10:58 | ULTRASOUND REPORT ---
DATE: 10/14/2018 at 1754. EXAM: OB PELVIC ULTRASOUND WITH TRANSVAGINAL IMAGING - EARLY (4 TO 13 WEEKS). HISTORY: EARLY INTRAUTERINE . FLANK PAIN. UNKNOWN LAST MENSTRUAL PERIOD. TECHNIQUE: Routine transabdominal pelvic ultrasound is performed. Additional transvaginal imaging is performed for improved sensitivity. COMPARISON: OB ULTRASOUND DATED 10/23/2017. FINDINGS: Transabdominal Findings: The uterus is normal in position and smoothly marginated. It measures 11.8 x 8.4 x 9.6 cm. No myometrial mass is identified. A single live intrauterine is visualized. motion and cardiac activity are demonstrated. The placenta is not yet developed. No subchorionic hemorrhage is seen. The gestational sac measures 6.3 x 3.6 x 6.5 cm corresponding to a gestational age of 11 weeks, 3 days. crown-rump length ranges between 5.6 cm and 5.84 cm corresponding to a gestational age of 12 weeks , 2 days. heart rate is 167 beats per minute. The right ovary is visualized and is normal in appearance with small follicle within. The right ovary measures 2.9 x 2.0 x 1.9 cm. The small cystic structure within measures 1.4 cm in maximum diameter. Blood flow is demonstrated within the right ovary with color Doppler and duplex Doppler evaluation. Spectral analysis demonstrates venous and arterial waveforms within the right ovary. The left ovary is not visualized. Transvaginal Findings: The cervix is closed. A single intrauterine gestational sac is redemonstrated. motion and cardiac activity are again noted. The placenta is not yet developed. The gestational sac measures 5.5 x 5.0 x 5.9 cm corresponding to a gestational age of 11 weeks, 3 days. [place]- rump length is approximately 5.77 cm corresponding to a gestational age of 12 weeks, 2 days. No subchorionic hemorrhage. The right ovary is visualized and is normal in size measuring 1.6 x 3.2 x 1.8 cm. A simple-appearing cystic structure is noted within the right ovary measuring 1.6 x 0.9 cm. This is consistent with a follicle or corpus luteum cyst. Blood flow is demonstrated within the right ovary with color Doppler and duplex Doppler evaluation. Spectral analysis demonstrates venous and arterial waveforms within the right ovary. The left ovary is visualized and is normal in appearance. It measures 2.3 x 1.0 x 1.7 cm. Blood flow is demonstrated within the left ovary with color Doppler and duplex Doppler evaluation. Spectral analysis demonstrates venous and arterial waveforms within the left ovary. No free fluid in the cul-de-sac. IMPRESSION: 1. SINGLE LIVE INTRAUTERINE WITH GESTATIONAL AGE PER CROWN-RUMP LENGTH OF 12 WEEKS, 2 DAYS. HEART RATE IS 167 BEATS PER MINUTE. 2. NO EVIDENCE OF SUBCHORIONIC HEMORRHAGE. 3. THE PLACENTA IS NOT YET DEVELOPED THOUGH APPEARS TO BE DEVELOPING ANTERIORLY WITH NO EVIDENCE OF PREVIA. 4. SMALL CYSTIC AREA WITHIN THE RIGHT OVARY MEASURING 1.6 CM CONSISTENT WITH A BENIGN FOLLICLE OR CORPUS LUTEUM CYST. Job Number: [id number] MTDD
== END 2018-10-14 19:27 | disposition home or self-care (01) ==
LOC: ER 16:46
DX: O23.41 Unspecified infection of urinary tract in pregnancy, first trimester (principal); R10.32 Left lower quadrant pain; Z3A.11 11 weeks gestation of pregnancy; Z87.442 Personal history of urinary calculi
CPT/HCPCS: 99284 ×2; 96365; 96375; 85025; 80053; 81001; 81025; 76775; 76817; 76801; J0696

== ENCOUNTER 2019-02-18 12:08 | Emergency (ER) | payer MEDICAID ==
--- NOTE | 2019-02-18 12:47 | Emergency Department Record ---
History of Present Illness - General Chief complaint: Flank Pain Stated complaint: KIDNEY PAIN Time Seen by Provider: 02/18/19 12:23 Source: Patient Mode of Arrival: Ambulatory Limitations: No limitations - History of Present Illness Initial comments: The patient is here due to a 2 day hx of flank pain. The pain has been worsening and the patient also has mild dysuria. She is and is 30 weeks . She denies any AP, or vaginal bleeding and feels the baby is moving normally. MD Complaint: Other Onset/Timin -: Days(s) Radiation: L flank, R flank Severity: Moderate Severity scale (1-10): 6 Quality: Aching Consistency: Constant Improves with: None Worsens with: None Patient : Yes Associated Symptoms: Denies other symptoms - Related Data : 5 Para: 2 Home Medications Medication Instructions Recorded Confirmed Last Taken Pnv No.95/Ferrous Fum/Folic AC 1 each PO DAILY 02/18/19 02/18/19 Unknown [ Caplet] Allergies Allergy/AdvReac Type Severity Reaction Status Date / Time No Known Drug Allergies Allergy Verified 02/18/19 12:35 Travel Screening - Travel/Exposure Within Last 30 Days Have you traveled within the last 30 days?: No Review of Systems Constitutional: Denies: Chills, Fever Eyes: Denies: Eye discharge ENT: Denies: Congestion Respiratory: Denies: Cough, Dyspnea Past Medical History - SOCIAL HISTORY Smoking Status: Former smoker Alcohol Use: None 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 : 5 Para: 2 - RESPIRATORY Hx Respiratory Disorders: No - CARDIOVASCULAR Hx Cardio Disorders: No - NEURO Hx Neuro Disorders: No - GI Hx GI Disorders: No - Hx Genitourinary Disorders: Yes Hx Kidney Stones: Yes - ENDOCRINE Hx Endocrine Disorders: No - MUSCULOSKELETAL Hx Musculoskeletal Disorders: No - PSYCH Hx Psych Problems: No - HEMATOLOGY/ONCOLOGY Hx Hematology/Oncology Disorders: No Family Medical History Any Significant Family History?: No Family Hx Comment (NOT TO BE USED IN PLACE OF ITEMS BELOW): denies Physical Exam - General General Appearance: Alert, Oriented x3, Cooperative, No acute distress - Head Head exam: Atraumatic, Normocephalic, Normal inspection - Eye Eye exam: Normal appearance, PERRL - Neck Neck exam: Normal inspection - Respiratory Respiratory exam: Normal lung sounds bilaterally. negative: Respiratory distress - Cardiovascular Cardiovascular Exam: Regular rate, Normal rhythm, Normal heart sounds - GI/Abdominal GI/Abdominal exam: Soft, Normal bowel sounds, Other (Obviously corresponding to dates.). negative: Rebound, Rigid, Tenderness - Extremities Extremities exam: Normal inspection, Full ROM, Normal capillary refill. negative: Tenderness - Back Back exam: Reports: CVA tenderness (R) (mild.), CVA tenderness (L) (mild.) - Neurological Neurological exam: Alert. negative: Motor sensory deficit - Skin Skin exam: negative: Rash Course Vital Signs 02/18/19 12:24 Temperature 98.2 F Pulse Rate [ 89 Pulse Ox Probe] Respiratory 16 Rate Blood Pressure 110/70 [Left Arm] Pulse Ox 97 - Reevaluation(s) Reevaluation #1: Due to the patient being 30 weeks I did feel the most appropriate course of action is to transfer the patient to OB triage at [facility]. I did discuss the case with Dr. Wade at [facility] and she did accept the patient in transfer. I did offer to send the patient by ambulance but she refused and would like to drive. 02/18/19 12:50 Disposition Disposition: Discharge Clinical Impression: Flank pain, acute Disposition: Acute Care Hospital Transfer Transfer To: [facility] OB Triage Reason For Transfer: 30 weeks Accepting Physician: Mauro Time Discussed w/Accepting Physician: 12:47 Condition: (2) Stable Instructions: Flank Pain (ED) Additional Instructions: Please proceed directly to OB triage at [facility] for further evaluation. Forms: Patient Portal Access Time of Disposition: 12:47 Quality - Quality Measures Quality Measures: N/A - Blood Pressure Screening View Details: Yes Does Patient Have Any of the Following: No Blood Pressure Classification: Normal BP Reading Systolic Measurement: 110 Diastolic Measurement: 70 Screening for High Blood Pressure: < Normal BP, F/U Not Required > [[id number]]
== END 2019-02-18 13:05 | disposition short-term general hospital (02) ==
LOC: ER 12:08
DX: O26.893 Other specified pregnancy related conditions, third trimester (principal); R10.9 Unspecified abdominal pain; R30.0 Dysuria; Z3A.30 30 weeks gestation of pregnancy; Z87.891 Personal history of nicotine dependence
CPT/HCPCS: 99285